=== PATIENT | female | born 1960 | race Caucasian/White ===

== ENCOUNTER → 2016-12-16 | Outpatient (CLI) | payer OTHER ==
[~2016-12-16] MED LIST: ACET325 PO; ESTR1TAB12 PO; SYNT137T PO; VALA500 PO
[2016-12-16 13:42] LABS: FREE T4 1.41 NG/DL (0.76-1.46)
== END ==
LOC: PLAB 07:24
DX: E89.0 Postprocedural hypothyroidism (principal)
CPT/HCPCS: 84439; 84443

== ENCOUNTER → 2017-05-03 | Day surgery (SDC) | payer OTHER ==
[~2017-05-03] MED LIST changes: +ACETAMINOPHEN 1000 MG/100 ML 100 ML IV ONE; +BUPIVACAINE/EPINEPHRINE 0.25% PF 30 ML VIAL ONE; +KETOROLAC TROMETHAMINE 30 MG/ML (IVP) VIAL IV PUSH ONE; +LACTATED RINGER'S 1000 ML INJ 1,000 ML ONE; +MIDAZOLAM HCL 2 MG/2 ML VIAL ONE; +ONDANSETRON HCL 4 MG/2 ML VIAL IV PUSH ONE; +PROPOFOL 200 MG/20 ML AMP IV ONE; +ceFAZolin 2 GM PREMIX 50 ML ONE; +metroNIDAZOLE 500 MG INJ 100 ML IV ONE
--- NOTE | 2017-05-03 14:38 | TN ---
cc: SAEID BURROUGHS M.D., SANDRA DATE OF SURGERY: 05/03/2017 PREOPERATIVE DIAGNOSIS Chronic calculous cholecystitis. POSTOPERATIVE DIAGNOSIS Chronic calculous cholecystitis. PROCEDURE Laparoscopic cholecystectomy. SURGEON Dr. Saeid Burroughs. HOSPICE TEAM LEAD VINH Kim. ANESTHESIA General. INDICATION This is a 57-year-old woman who has had chronic recurrent episodes of upper abdominal pain and nausea with emesis after fatty foods. She has imaging which demonstrates gallstones. Recommendations were made for laparoscopic cholecystectomy. INTRAOPERATIVE FINDINGS Inflammatory adhesions consistent with chronic calculous cholecystitis. Gallbladder removed and sent to pathology. ' ESTIMATED BLOOD LOSS Less than 5 mL. This procedure was assisted by my [employer] SALES REPRESENTATIVE. The skill set of a nurse practitioner was medically necessary to increase safety and efficiency in the completion of this surgery. The rn surgical pcu was at the back table providing instrumentation while the [employer] SALES REPRESENTATIVE was directly assisting me through the entirety of the surgery. DESCRIPTION OF PROCEDURE IN DETAIL The patient was identified as Unique Salcedo, taken to the operating room and placed in supine position. Sequential compression devices were placed on bilateral lower extremities. Following the induction of adequate general endotracheal anesthesia the patient's abdomen was prepped and draped in the usual sterile fashion with Betadine. A timeout procedure was performed. Following completion of the timeout procedure to everyone's satisfaction within the room local anesthetic was injected at each incision site. An infraumbilical 2-3 cm vertical incision was carried out with a scalpel and dissection continued posteriorly to the level of the midline fascia. The base of the umbilicus was retracted anteriorly. The fascia was incised with a scalpel and entry into the peritoneal cavity was facilitated with the surgeon's finger. The [employer] balloon Tuyet trocar was placed in the peritoneal cavity and its balloon inflated with CO2 insufflation until a level of 15 mmHg ensued. The patient was placed in a reverse Trendelenburg position turned to the left. Two upper abdominal 5 mm trocars were placed in the peritoneal cavity under direct laparoscopic view after incision of the skin with a scalpel. The gallbladder was immediately identified, was distended and large. It was covered in omental adhesions. These adhesions were taken down from the inferior surface of the gallbladder using the Harmonic scalpel. The gallbladder was then removed from the gallbladder fossa in a dome-down technique using the Harmonic scalpel. A cystic artery anterior to the cystic duct was identified, isolated from surrounding tissues and divided with the Harmonic scalpel. The cystic duct which lay directly behind this artery was then skeletonized from surrounding tissues, ligated proximally and distally with 0 PDS Endoloops and divided between the Endoloops. The gallbladder was removed from the infraumbilical fascial port incision site, having to extend the fascia and the skin in order to remove the gallbladder. The gallbladder was passed off the field for pathologic evaluation. The right upper quadrant was examined. There was no bilious or bloody drainage. The cystic duct ligature remained intact. The cystic arterial stump was hemostatic. The remaining local anesthetic was placed in the subhepatic position. The trocars were removed under direct visualization. There was no evidence of bleeding from the trocar sites. The abdomen was desufflated through the infraumbilical port which was then removed. The infraumbilical fascial incision was closed with multiple interrupted 0 Vicryl sutures. The wounds were irrigated with saline. The skin incisions were approximated with 4-0 Monocryl subcuticular sutures. Dressings were applied with Mastisol and half-inch brown Steri-Strips. The patient tolerated the procedure without apparent complication. Sponge, needle and instrument counts were correct at the end of the case. MD IRENE Johnson/LEIGHTON /2:23 PM /2:32 PM CARISA
== END | disposition home or self-care (01) ==
LOC: ESDC 10:58
PROVIDERS: ATTEND Surgery Trauma Surgery
DX: K80.10 Calculus of gallbladder with chronic cholecystitis without obstruction (principal)
CPT/HCPCS: 00790; 47562; 88304; J0131; J0690; J1885; J2250; J2405; J3010; J7120